=== PATIENT | female | born 1970 | race Caucasian/White ===

== ENCOUNTER → 2017-10-09 12:33 | Outpatient (CLI) | payer OTHER, SELFPAY ==
--- NOTE | 2017-10-09 | DI.MG.S_ITS ---
BILATERAL DIGITAL SCREENING MAMMOGRAM 3D/2D WITH CAD: 10/09/2017 CLINICAL: Routine screening. Family history of breast cancer. Comparison is made to exams dated: 09/08/2016 mammogram, 09/07/2015 mammogram, and 08/29/2013 mammogram - [facility]. There are scattered fibroglandular elements in both breasts. Current study was also evaluated with a Computer Aided Detection (CAD) system. No significant masses, calcifications, or other findings are seen in either breast. There has been no significant interval change. IMPRESSION: NEGATIVE There is no mammographic evidence of malignancy. A 1 year screening mammogram is recommended. This exam was interpreted at Station ID: [id number]. NOTE: For mammograms, a report in lay terms will be sent to the patient. Approximately 15% of breast malignancies will not be visualized mammographically. In the management of a palpable breast mass, a negative mammogram must not discourage biopsy of a clinically suspicious lesion. Electronically Signed By: Marlee dobbins/nael:10/09/2017 14:32:00 letter sent: Normal Exam ACR BI-RADS Category 1: Negative 3341F
== END ==
PROVIDERS: Visit Provider Emergency Medicine Emergency Medical Services
DX: Z12.31 Encounter for screening mammogram for malignant neoplasm of breast (principal); Z80.3 Family history of malignant neoplasm of breast
CPT/HCPCS: 77063; 77067

== ENCOUNTER → 2017-11-05 13:50 | Outpatient (CLI) | payer OTHER, SELFPAY ==
--- NOTE | 2017-11-05 | DI.MG.S_ITS ---
UNILATERAL RIGHT DIGITAL DIAGNOSTIC MAMMOGRAM: 11/05/2017 CLINICAL: Right breast pain. Comparison is made to exams dated: 10/09/2017 mammogram, 09/08/2016 mammogram, and 09/07/2015 mammogram - [facility]. There are scattered fibroglandular elements in the right breast. No significant masses, calcifications, or other findings are seen in the breast. IMPRESSION: INCOMPLETE: NEEDS ADDITIONAL IMAGING EVALUATION There is no abnormality seen in the right breast to correspond with the pain in the upper inner quadrant, however, ultrasound is recommended. This exam was interpreted at Station ID: [id number]. NOTE: For mammograms, a report in lay terms will be sent to the patient. Approximately 15% of breast malignancies will not be visualized mammographically. In the management of a palpable breast mass, a negative mammogram must not discourage biopsy of a clinically suspicious lesion. Electronically Signed By: Ricci escalona/nael:11/05/2017 14:33:18 letter sent: Need Ultrasound ACR BI-RADS Category 0: Incomplete 3340F
--- NOTE | 2017-11-05 | DI.US.S_ITS ---
ULTRASOUND OF RIGHT BREAST: 11/05/2017 CLINICAL: Focal right breast pain. Comparison is made to exams dated: 11/05/2017 mammogram, 10/09/2017 mammogram, 09/08/2016 mammogram, 09/07/2015 mammogram, 03/18/2013 mammogram, and 08/29/2013 mammogram - [facility]. Real-time ultrasound of the right breast was performed on the area of interest. IMPRESSION: NEGATIVE There is no sonographic evidence of malignancy. There is no abnormality seen in the right breast to correspond with the pain in the upper inner quadrant, however, clinical followup is recommended. Return to annual mammogram screening schedule is recommended. This exam was interpreted at Station ID: [id number]. Electronically Signed By: Ricci escalona/nael:11/05/2017 16:21:05 letter sent: Clinical Evaluation Ultrasound BI-RADS: 1 Negative
== END ==
PROVIDERS: Visit Provider Emergency Medicine Emergency Medical Services
DX: N64.4 Mastodynia (principal)
CPT/HCPCS: 76642; 77065; G0279

== ENCOUNTER 2017-12-12 18:03 | Observation (INO) | payer OTHER, SELFPAY ==
[2017-12-12 18:26] VITALS: BP 179/101; PULSE 119; RESP 20; TEMP 36.9; O2SAT 100; BMI 34.3
--- NOTE | 2017-12-12 18:49 | ED_ITS ---
HPI - Abdominal Pain General Chief Complaint: Abdominal Pain Stated Complaint: RT SIDE PAIN Time Seen by Provider: 12/12/17 18:15 Source: patient Mode of arrival: ambulatory Limitations: no limitations History of Present Illness HPI narrative: Patient is a 47-year-old female who presents with all right- sided pain. She says started at 3:00 p.m. this afternoon is it is quite intense sharp and stabbing. Nonradiating. Not really in her right lower or upper quadrant more in the middle. No hematuria. She feels nauseated no vomiting no fevers no diarrhea. She does something like this in the past and was diagnosed with a diverticulitis. MD complaint: abdominal pain Related Data Home Medications Medication Instructions Recorded Confirmed atenolol 50 mg PO BID 12/12/17 12/12/17 lisinopril 50 mg PO DAILY 12/12/17 12/12/17 metformin 500 mg PO BID 12/12/17 12/12/17 Allergies Allergy/AdvReac Type Severity Reaction Status Date / Time adhesive AdvReac Intermediate Hives Verified 12/12/17 22:28 Review of Systems Review of Systems All systems reviewed & are unremarkable except as noted in HPI and below Constitutional Denies chills, Denies fever(s), Denies lethargy and Denies weakness Cardiovascular Denies chest pain, Denies irregular heart rhythm, Denies lightheadedness, Denies palpitations, Denies dyspnea, Denies dyspnea on exertion and Denies orthopnea Respiratory Denies cough, Denies dyspnea, Denies dyspnea on exertion and Denies wheezing Gastrointestinal Gastrointestinal: Reports as per HPI Genitourinary Denies hematuria, Denies flank pain, Denies urinary incontinence and Denies urinary urgency Musculoskeletal Denies back pain, Denies muscle weakness, Denies numbness and Denies tingling Integumentary/Breasts Denies pruritus, Denies erythema, Denies rash and Denies wounds Neurologic Denies numbness, Denies tingling and Denies weakness Endocrine Denies palpitations Allergic/Immunologic Denies wheezing [facility] Medical History Hypertension (Acute) Ovarian cyst (Acute) Sinus tachycardia (Acute) Surgical History History of cholecystectomy (Acute) Social History household members: spouse Smoking Status: Former smoker alcohol intake: never substance use type: does not use Exam Initial Vital Signs Initial Vital Signs: Vital Signs Temperature 98.4 F 12/12/17 18:26 Pulse Rate 119 H 12/12/17 18:26 Respiratory Rate 20 12/12/17 18:26 Blood Pressure 179/101 H 12/12/17 18:26 Pulse Oximetry 100 12/12/17 18:26 GENERAL: Overweight young female in mild distress HEENT: Head atraumatic,EOMI, pupils reactive, neck is supple CARDIOVASCULAR: Regular rate and rhythm without murmurs, rubs or gallops. RESPIRATORY: Breath sounds equal bilaterally, no wheezes rales or rhonchi. ABDOMEN: Soft, right-sided pain, negative Mafyield sign, no right lower quadrant pain : No CVA tenderness EXTREMITIES: Normal range of motion, no clubbing or edema. Neurovascularly intact NEUROLOGICAL: Alert and oriented x4.Normal gait and speech. Cranial nerves II through XII grossly intact. SKIN: Warm, dry, no laceration, no petechiae, no rashes or lesions. Course Orders Ordered: ED Orders 12/12/17 18:57 CT abdomen pelvis w con Stat 12/12/17 19:25 Complete Blood Count AUTO DIFF Stat Comprehensive Metabolic Panel Stat Lipase Stat 12/12/17 22:11 Consult to General Surgery Routine Sodium Chloride (Normal Saline 0.9%) 1,000 mls @ 125 mls/hr IV CONT JEY Last Admin: 12/12/17 22:47 Dose: 125 mls/hr Piperacillin/Tazobactam/Dextrose (Zosyn) 3.375 gm in 50 mls @ 100 mls/hr IV Q6H JEY Morphine Sulfate (Morphine) 2 mg IV Q4HR PRN PRN Reason: Pain, Mild (1-3) Last Admin: 12/12/17 22:55 Dose: 2 mg Ondansetron HCl (Zofran) 4 mg IV Q6HR PRN PRN Reason: Nausea And Vomiting Discontinued Medications Atenolol (Tenormin) 50 mg PO NOW ONE Stop: 12/12/17 21:05 Last Admin: 12/12/17 21:20 Dose: 50 mg Sodium Chloride (Normal Saline 0.9%) 1,000 mls @ 1,000 mls/hr IV CONT JEY Last Infusion: 12/12/17 21:48 Dose: 0 mls/hr Admin: 12/12/17 19:47 Dose: 1,000 mls/hr Piperacillin/Tazobactam/Dextrose (Zosyn) 3.375 gm in 50 mls @ 100 mls/hr IV NOW ONE Stop: 12/12/17 20:52 Last Infusion: 12/12/17 21:48 Dose: 0 mls/hr Admin: 12/12/17 20:50 Dose: 100 mls/hr Ketorolac Tromethamine (Toradol) 30 mg IV NOW ONE Stop: 12/12/17 18:57 Last Admin: 12/12/17 19:47 Dose: 30 mg Morphine Sulfate (Morphine) 2 mg IV NOW ONE Stop: 12/12/17 20:44 Last Admin: 12/12/17 20:49 Dose: 2 mg Ondansetron HCl (Zofran) 4 mg IV NOW ONE Stop: 12/12/17 18:57 Last Admin: 12/12/17 19:47 Dose: 4 mg Consultations Consultation #1: Dr. Elias surgery has been updated on patient's symptoms and test results. At this time admit with IV antibiotics. Time: 20:15 Vital Signs - 8 hr 12/12/17 18:26 12/12/17 19:10 12/12/17 21:08 Temperature 98.4 F Pulse Rate 119 H 112 H 114 H Respiratory Rate 20 18 16 Blood Pressure 179/101 H Blood Pressure [Left Arm] 164/99 H 149/82 H Pulse Oximetry 100 100 97 12/12/17 22:16 Temperature 98.3 F Pulse Rate 93 H Respiratory Rate 18 Blood Pressure 148/86 H Blood Pressure [Left Arm] Pulse Oximetry 99 MDM - Abdominal Pain Lab Data Result diagrams: 12/12/17 19:25 12/12/17 19:25 Lab Results 12/12/17 12/12/17 Range/Units 19:25 19:25 WBC 18.2 H (4.5-11.0) X10^3/uL RBC 4.91 (4.0-5.2) X10^6/uL Hgb 13.6 (12.0-16.0) g/dL Hct 40.8 (36-46) % MCV 83.0 (80-100) fL MCH 27.7 (26-34) PG MCHC 33.4 (30-36) % RDW 13.9 (11.6-14.8) % Plt Count 300 (150-400) X10^3/uL Neut % (Auto) 78.3 H (50-75) % Lymph % (Auto) 13.4 L (25-40) % [place] % (Auto) 5.9 (3-14) % Eos % (Auto) 2.1 (2-4) % Baso % (Auto) 0.3 (0-2) % Neut # (Auto) 91529 H (9823-3652) /uL Sodium 143 (137-145) mmol/L Potassium 4.0 (3.4-5.1) mmol/L Chloride 103 (98-107) mmol/L Carbon Dioxide 27 (22-32) mmol/L BUN 14 (7-17) mg/dL Creatinine 0.80 (0.52-1.04) mg/dL Estimated GFR > 60.0 (>60) mL/min BUN/Creatinine Ratio 17.5 (6-22) Glucose 96 (70-100) mg/dL Calcium 9.6 (8.4-10.2) mg/dL Total Bilirubin 0.4 (0.2-1.3) mg/dL AST 39 H (14-36) IU/L ALT 51 (9-52) IU/L Alkaline Phosphatase 97 (38-126) U/L Total Protein 8.2 (6.3-8.2) g/dL Albumin 4.6 (3.5-5.0) g/dL Globulin 3.6 (1.7-4.1) g/dL Albumin/Globulin Ratio 1.3 (1.0-2.8) Lipase 136 (23-300) U/L Point of care testing: Point of Care Testing Test Results Negative Urine Dip Bedside Urine Glucose Negative Bedside Urine Bilirubin - Negative Bedside Urine Ketone - Negative Urine Specific [place] 1.030 Bedside Urine Occult Blood - Negative Bedside Urine pH 6.0 Bedside Urine Protein - Negative Bedside Urine Urobilinogen - Negative Bedside Urine Nitrite - Negative Bedside Urine Leukocytes - Negative Esterase Imaging Data CT scan - abdomen: Radiologist's impression: PROCEDURE: CT ABDOMEN PELVIS W CON INDICATIONS: Right sided pain TECHNIQUE: After the administration of intravenous contrast, 5 mm thick sections acquired from the diaphragm to the symphysis. 5 mm coronal and sagittal reformats were acquired. For radiation dose reduction, the following was used: automated exposure control, adjustment of mA and/or kV according to patient size. COMPARISON: None. FINDINGS: Image quality: Excellent. ABDOMEN: Lung bases: Lung bases are clear. Heart size is normal. Solid organs: Liver is normal in size and enhancement. Gallbladder is surgically absent. Biliary system is non dilated. Pancreas enhances normally. Spleen is normal in size and enhancement. No adrenal nodules. Kidneys demonstrate normal size and enhancement, without hydronephrosis. Peritoneum and bowel: Bowel loops demonstrate normal wall thickness and caliber. The appendix is thin walled and normal caliber. However, there is trace fat stranding around the appendix (series 2, image 40). No free fluid or air. Nodes and vessels: No retroperitoneal or mesenteric adenopathy by size criteria. Aorta and inferior vena cava are normal in size. Miscellaneous: There is diastasis of the rectus abdominis musculature. PELVIS: Genitourinary: Bladder wall thickness is normal. Miscellaneous: No inguinal hernias or adenopathy. Bones: No suspicious bony lesions. No vertebral body compression fractures. IMPRESSION: 1. Normal caliber appendix; however there is trace periappendiceal fat stranding. The significance of this finding is unclear. Early acute appendicitis could be considered in the differential if clinically appropriate. 2. No other acute intra-abdominal findings. Dictated by: Marlee Fenton M.D. on 12/12/2017 at 19:49 Approved by: Marlee Fenton M.D. on 12/12/2017 at 19:51 Discharge Plan Departure Patient Disposition: Admitted as Observation Clinical Impression: Appendicitis Discharge Date/Time: 12/12/17 22:10 Interventions: ED Discharge Assessment Last Done: 12/12/17 22:09 Admit Date/Time: 12/12/17 20:36 Admit Provider: Gregory Brush
--- NOTE | 2017-12-12 18:57 | DI.CT.S_ITS ---
PROCEDURE: CT ABDOMEN PELVIS W CON INDICATIONS: Right sided pain TECHNIQUE: After the administration of intravenous contrast, 5 mm thick sections acquired from the diaphragm to the symphysis. 5 mm coronal and sagittal reformats were acquired. For radiation dose reduction, the following was used: automated exposure control, adjustment of mA and/or kV according to patient size. COMPARISON: None. FINDINGS: Image quality: Excellent. ABDOMEN: Lung bases: Lung bases are clear. Heart size is normal. Solid organs: Liver is normal in size and enhancement. Gallbladder is surgically absent. Biliary system is non dilated. Pancreas enhances normally. Spleen is normal in size and enhancement. No adrenal nodules. Kidneys demonstrate normal size and enhancement, without hydronephrosis. Peritoneum and bowel: Bowel loops demonstrate normal wall thickness and caliber. The appendix is thin walled and normal caliber. However, there is trace fat stranding around the appendix (series 2, image 40). No free fluid or air. Nodes and vessels: No retroperitoneal or mesenteric adenopathy by size criteria. Aorta and inferior vena cava are normal in size. Miscellaneous: There is diastasis of the rectus abdominis musculature. PELVIS: Genitourinary: Bladder wall thickness is normal. Miscellaneous: No inguinal hernias or adenopathy. Bones: No suspicious bony lesions. No vertebral body compression fractures. IMPRESSION: 1. Normal caliber appendix; however there is trace periappendiceal fat stranding. The significance of this finding is unclear. Early acute appendicitis could be considered in the differential if clinically appropriate. 2. No other acute intra-abdominal findings. Dictated by: Marlee Fenton M.D. on 12/12/2017 at 19:49 Approved by: Marlee Fenton M.D. on 12/12/2017 at 19:51
[2017-12-12 19:10] VITALS: BP 164/99; PULSE 112; RESP 18; O2SAT 100
[2017-12-12 19:37] LABS: Add Manual Diff / Slide Review NO; Basophils Percent Auto 0.3 % (0-2); Eosinophils Percent Auto 2.1 % (2-4); Hematocrit 40.8 % (36-46); Hemoglobin 13.6 g/dL (12.0-16.0); Lymphocytes Percent Auto 13.4 % (25-40); Mean Corpuscular HGB Conc 33.4 % (30-36); Mean Corpuscular Hemoglobin 27.7 PG (26-34); Monocytes Percent Auto 5.9 % (3-14); Neutrophils Absolute Auto 14300 /uL (3000-5900); Neutrophils Percent Auto 78.3 % (50-75); Platelet Count 300 X10^3/uL (150-400); Red Blood Cell Count 4.91 X10^6/uL (4.0-5.2); Red Cell Distribution Width 13.9 % (11.6-14.8); White Blood Cell Count 18.2 X10^3/uL (4.5-11.0)
[2017-12-12] MEDS: KETOROLAC 60 MG/2 ML VIAL 30 MG IV (19:47)
[2017-12-12] MEDS: ONDANSETRON 4 MG/2 ML INJ IV (19:47)
[2017-12-12] MEDS: SODIUM CHLORIDE 0.9% 1,000 ML 1000 ML IV (19:47)
[2017-12-12 19:48] LABS: Alanine Aminotransferase 51 IU/L (9-52); Albumin 4.6 g/dL (3.5-5.0); Albumin Globulin Ratio 1.3 (1.0-2.8); Alkaline Phosphatase 97 U/L (38-126); Aspartate Aminotransferase 39 IU/L (14-36); BUN Creatinine Ratio 17.5 (6-22); Bilirubin Total 0.4 mg/dL (0.2-1.3); Blood Urea Nitrogen 14 mg/dL (7-17); Calcium 9.6 mg/dL (8.4-10.2); Carbon Dioxide 27 mmol/L (22-32); Chloride 103 mmol/L (98-107); Estimated Glomerular Filt Rate > 60.0 mL/min (>60); Globulin 3.6 g/dL (1.7-4.1); Glucose 96 mg/dL (70-100); HEMOLYSIS 26 (0-50); Lipase 136 U/L (23-300); Sodium 143 mmol/L (137-145); Total Protein 8.2 g/dL (6.3-8.2)
[2017-12-12] MEDS: MORPHINE 2 MG/ML INJ IV ×2 (20:49→22:55)
[2017-12-12] MEDS: PIPERACILLIN-TAZO 3.375 GM/50 ML FROZ.PIGGY IV (20:50)
[2017-12-12 21:08] VITALS: BP 149/82; BP 159/94; PULSE 114; PULSE 117; RESP 16; RESP 18; O2SAT 97; O2SAT 99
[2017-12-12] MEDS: ATENOLOL 50 MG TABLET PO (21:20)
[2017-12-12 22:16] VITALS: BP 148/86; PULSE 93; RESP 18; TEMP 36.8; O2SAT 99
[2017-12-12 22:31] VITALS: BMI 34.3
[2017-12-12] MEDS: SODIUM CHLORIDE 0.9% 1,000 ML 125 ML IV (22:47)
[2017-12-12 23:30] VITALS: BP 128/72; PULSE 75; RESP 20; TEMP 36.4; O2SAT 96
[2017-12-13] VITALS (17 sets, daily range): BP systolic 85–158; BP diastolic 46–84; PULSE 46–80; RESP 12–22; TEMP 36.3–37.2; O2SAT 97–100; BMI 34.3
--- NOTE | 2017-12-13 | PATH_ITS ---
[facility] Accession Number: [id number] . 01 Material submitted: . APPENDIX . 02 Diagnosis: Appendix, Appendectomy: Acute appendicitis with serositis. No evidence of dysplasia or malignancy. [facility]/12/16/2017 . 02 Electronically signed: . Faye Crawford MD, Pathologist NPI- [id number] . 01 Gross description: . Received in formalin, labeled appendix, is an intact appendix (length-8.5 cm, diameter-0.7 cm) with washburn smooth and shiny serosa and attached mesoappendix (up to 2.1 cm in depth). The resection margin is received opened. The lumen contains clear colorless fluid. The wall is up to 0.2 cm thick. No nodules, masses or lesions are identified. The resection margin is inked black. Section code: (A1) resection margin en face and three additional serial sections; (A2) one-half of the bivalved tip. ([id number]) /[facility] . 02 Pathologist provided ICD-10: K35.80 . 02 CPT . 974323 Performed at: 01 [facility] [address], [place], [place] [id number] MD Ricci Colon MD Phone: [phone] Performed at: 02 [facility] [address] [place], [place] [id number] MD Bobby Crews MD Phone: [phone]
--- NOTE | 2017-12-13 00:40 | PC.NURSE ---
Addendum entered by Luna Velasquez R.N. 12/13/17 06:55: Now states pain is better controlled at 4/10. Nausea is resolved. Original Note: Addendum entered by Luna Velasquez R.N. 12/13/17 05:04: States pain is now 6/10 so medicated with Morphine. Denies nausea. Original Note: Patient is alert and oriented. Breath sounds CTA with RA sat of 96%. HRR. Denies nausea. BT present and abdomen is soft. Admits to 4/10 pain/tenderness in right LQ but states it is currently tolerable. Discussed frequency of pain medication but also informed if pain not controlled with current orders MD can be contacted. Independent with mobility. NPO for surgery in a.m.; patient verbalizes understanding. Voiding without difficulty. Fall risk score is moderate but is oriented and steady on feet so bed alarm is not being used.
[2017-12-13] MEDS: PIPERACILLIN-TAZO 3.375 GM/50 ML FROZ.PIGGY IV ×2 (01:55→07:52)
[2017-12-13] MEDS: MORPHINE 2 MG/ML INJ IV ×2 (05:00→06:00)
[2017-12-13] MEDS: ONDANSETRON 4 MG/2 ML INJ IV (05:47)
[2017-12-13] MEDS: SODIUM CHLORIDE 0.9% 1,000 ML 125 ML IV (06:08)
[2017-12-13] MEDS: LACTATED RINGERS 1,000 ML 100 ML IV ×2 (08:40→16:42)
[2017-12-13] MEDS: LACTATED RINGERS 1,000 ML 42 ML IV (08:45)
--- NOTE | 2017-12-13 09:29 | HP_ITS ---
DATE OF SERVICE: 12/13/2017 HISTORY OF PRESENT ILLNESS: This is a 47-year-old white female patient who came to the emergency room last evening with lower abdominal pain, which actually began the same day, yesterday afternoon. She was evaluated in the emergency room with a CT scan and a CBC. White count of 18,000. CT scan showing uncomplicated early acute appendicitis. She was admitted, given IV Zosyn, and is prepared now for appendectomy. I have explained to the patient that we will plan an open appendectomy. She is not morbidly obese, so there is really no surgical indication for laparoscopy. PAST SURGICAL HISTORY: She has had left shoulder repair several times. She has also had a laparoscopic cholecystectomy. ALLERGIES: NO KNOWN MEDICAL ALLERGIES EXCEPT TO ADHESIVE TAPE. MEDICATIONS: She takes lisinopril and atenolol for hypertension and metformin for early diabetes. No other medications. REVIEW OF SYSTEMS: Negative for unusual chest pain or shortness of breath. GI: As in HPI. : Negative. TEST PREPARATION TUTOR: No abnormal vaginal bleeding. NEUROLOGIC: Negative for seizures or strokes. CARDIOVASCULAR: She does have hypertension and sinus tachycardia for which she takes beta bob and lisinopril. PHYSICAL EXAMINATION VITAL SIGNS: She is afebrile, temperature being 97.6. HEENT: Ears, nose, and throat are normal. NECK: No adenopathy. LUNGS: Clear with no rales or wheezes. HEART: Regular rhythm with no murmur. Heart rate is only 80 this morning. ABDOMEN: Mild tenderness right over McBurney point just anterior and a bit superior to the anterior iliac spine in the right lower quadrant. The remaining abdominal exam is soft with no signs of generalized peritonitis. IMPRESSION: Early uncomplicated acute appendicitis. She also has hypertension and early onset diabetes. PLAN: Appendectomy. Momin Liyah - /dionicio/enedelia doc#: [id number]/job#: [id number] dd: 12/13/2017 08:12:00 dt: 12/13/2017 09:19:00 DICTATING MD/COPIES TO: Gregory Brush MD COPIES MNE: MAO
--- NOTE | 2017-12-13 09:36 | SUR.OPER ---
Supine on padded OR bed, head on pillow, arms secured on padded arm boards at <90 degrees abduction, legs uncrossed, safety belt at thigh, tape over blanket over lower legs.
[2017-12-13] MEDS: BUPIVACAINE 0.5% W/ EPI (PF) VIAL 30 ML INJ (09:45)
[2017-12-13] MEDS: NEOMYCIN/POLYMYXIN/BACITRA UD OINT 1 EACH TOP (09:47)
[2017-12-13] MEDS: fentaNYL 100 MCG/2 ML INJ 50 MCG IV ×2 (10:40→10:45)
[2017-12-13] MEDS: FAMOTIDINE 20 MG/50 ML PIGGYBACK 200 MG IV (11:43)
--- NOTE | 2017-12-13 13:43 | OP_ITS ---
DATE OF SERVICE: 12/13/2017, 1010:30 a.m., Thursday. PREOP DIAGNOSIS: Acute uncomplicated appendicitis. POSTOP DIAGNOSIS: Acute uncomplicated appendicitis. PROCEDURE: Appendectomy. SURGEON: Gregory Brush MD DESCRIPTION OF PROCEDURE: Patient was given a general endotracheal anesthetic, prepped and draped in a sterile fashion with exposure of the right lower quadrant of the abdomen. She was properly identified during surgical pause. A standard Keenan-Domo incision was made over McBurney point. The oblique muscles split in the gridiron fashion exposing the peritoneum, which was elevated and entered so as to avoid injury to the underlying structures. The cecum was rotated into the wound. The patient's appendix with an elevated, and the tip of the appendix was acutely inflamed and edematous, coated with some fibrin, erythematous. There was no evidence of abscess. There was no perforation of the appendix. The mesoappendix was divided between clamps. The vessels ligated with 2-0 Vicryl ties. There was excellent hemostasis. The base of the appendix was closed over a TA30 staple line, and then the appendix was cross clamped and divided over the staple line, removing the appendix without any spillage. There was, again, no free pus. The staple line was inspected and was intact. The cecum returned to the peritoneal position in the right lower quadrant, the pelvis irrigated with copious Ancef containing saline, aspirated dry. There was no bleeding. No purulence. The peritoneum closed with a running 0 Vicryl. The fascia closed with interrupted #1 Maxon, figure-of-8 sutures. The subcu irrigated with Ancef saline and closed with 2-0 Vicryl. The skin loosely stapled. Sterile dressing applied. Procedure was very well-tolerated. Liyah Momin - /dionicio/ doc#: [id number]/job#: [id number] dd: 12/13/2017 10:28:00 dt: 12/13/2017 13:33:00 DICTATING MD/COPIES TO: Gregory Brush MD COPIES MNE: MAO
[2017-12-13] MEDS: OXYCODONE/ACETAMINOPHEN 5/325 TABLET 1 TAB PO ×2 (16:41→21:27)
[2017-12-13] MEDS: METFORMIN HCL 500 MG TABLET PO (16:43)
[2017-12-13] MEDS: IBUPROFEN 600 MG TABLET PO (20:37)
[2017-12-13] MEDS: ATENOLOL 50 MG TABLET PO (20:37)
[2017-12-14] MEDS: FAMOTIDINE 20 MG/50 ML PIGGYBACK 200 MG IV (00:47)
--- NOTE | 2017-12-14 01:01 | PC.NURSE ---
Addendum entered by Ingrid Melton R.N. 12/14/17 06:43: pt complaining of 6/10 pain after ambulating to BR. Administrated 1 tab percocet and let her know when her next dose is available and that she will need to ask for her pain meds. Original Note: NOC shift Patient resting calmly, alert and awakes to voice. Patient receptive to care. IND in room. Denying nausea, reporting pain of 2/10 and able to tolerate. Dressing is intact. but is 3/4 covered with drainage.
[2017-12-14] MEDS: LACTATED RINGERS 1,000 ML 100 ML IV (02:19)
[2017-12-14 04:18] VITALS: BP 116/68; PULSE 63; RESP 20; TEMP 36.3; O2SAT 98
[2017-12-14] MEDS: OXYCODONE/ACETAMINOPHEN 5/325 TABLET 1 TAB PO ×3 (06:39→14:32)
[2017-12-14 08:00] VITALS: BP 153/92; PULSE 76; RESP 18; TEMP 36.7; O2SAT 95
[2017-12-14] MEDS: ATENOLOL 50 MG TABLET PO (08:16)
[2017-12-14] MEDS: METFORMIN HCL 500 MG TABLET PO (08:16)
[2017-12-14] MEDS: IBUPROFEN 600 MG TABLET PO (08:16)
[2017-12-14] MEDS: LISINOPRIL 10 MG TABLET PO (08:23)
--- NOTE | 2017-12-14 11:29 | PC.NURSE ---
Addendum entered by Alexia Padilla R.N. 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 Original Note: Addendum entered by Alexia Padilla R.N. 12/14/17 14:14: integ - earlier loratadine resolved itching sensation. in and pt to dc home. Original Note: Addendum entered by Alexia Padilla R.N. 12/14/17 12:39: INTEG - pt reports some itching, along incisions, states hx allergy to adhesive, removed op site, telfa dsg w/old serosang, no rash or hives noted skin, stapled incicions c,d,i, replaced telfa with hypofix tape over as pt state she sampson this at home; also, unable to take benadryl due reaction and takes claritan at home, paged and reached in OR, new order rec'd and pt given 10mg po loratadine. Original Note: AM NOTE - alert, did have an uncomfortable night, once medicated, states abd discomfort 4 on scale 0/10, denies nausea, abd soft with bt present, passing flatus, standby assist up br to void and then to chair for breakfast, rlq dsg with some shadow drainage, op site intact w/o leakage, discussed pain medications, dosages and timing, given ibuprofen with breakfast and later am given percocet po x 1 tab with crackers.
[2017-12-14] MEDS: FAMOTIDINE 20 MG/50 ML PIGGYBACK 50 MG IV (11:53)
[2017-12-14] MEDS: LORATADINE 10 MG TABLET PO (12:44)
== END 2017-12-14 15:00 | disposition home or self-care (01) ==
LOC: ED 20:25 → AC 20:41
PROVIDERS: Admitting Provider Surgery; Emergency Provider Emergency Medicine; Visit Provider Surgery
PROC: (CPT 44950; principal; 2017-12-13 08:40)
DX: K37 Unspecified appendicitis (principal); I10 Essential (primary) hypertension; E11.9 Type 2 diabetes mellitus without complications; Z79.84 Long term (current) use of oral hypoglycemic drugs
CPT/HCPCS: 44970; 36591; 36592; 74177; 80053; 81003; 81025; 83690; 85025; 93005; 94760; 94762; 96374; 96375; 99283; 99285; G0378; J1885; J2270; J2405; J2543; J2704; J2765; J3010; Q9967

== ENCOUNTER → 2019-02-22 11:30 | Outpatient (CLI) | payer OTHER, SELFPAY ==
[2017-12-21 12:09] VITALS: BMI 34.3
--- NOTE | 2019-02-22 | DI.MG.S_ITS ---
BILATERAL DIGITAL SCREENING MAMMOGRAM 3D/2D WITH CAD: 02/22/2019 CLINICAL: Routine screening. Family history of breast cancer. Comparison is made to exams dated: 11/05/2017 mammogram, 10/09/2017 mammogram, 09/08/2016 mammogram, and 09/07/2015 mammogram - [facility]. There are scattered fibroglandular elements in both breasts. Current study was also evaluated with a Computer Aided Detection (CAD) system. No significant masses, calcifications, or other findings are seen in either breast. There has been no significant interval change. IMPRESSION: NEGATIVE There is no mammographic evidence of malignancy. A 1 year screening mammogram is recommended. This exam was interpreted at Station ID: [id number]. NOTE: For mammograms, a report in lay terms will be sent to the patient. Approximately 15% of breast malignancies will not be visualized mammographically. In the management of a palpable breast mass, a negative mammogram must not discourage biopsy of a clinically suspicious lesion. Electronically Signed By: Marlee dobbins/nael:02/22/2019 12:33:00 letter sent: Normal Exam ACR BI-RADS Category 1: Negative [id number]
== END ==
PROVIDERS: Visit Provider Emergency Medicine Emergency Medical Services
DX: Z12.31 Encounter for screening mammogram for malignant neoplasm of breast (principal); Z80.3 Family history of malignant neoplasm of breast
CPT/HCPCS: 77063; 77067

== ENCOUNTER 2019-11-27 20:28 | Emergency (ER) | payer OTHER, SELFPAY ==
[2017-12-21 12:09] VITALS: BMI 34.3
[2019-11-27 20:37] VITALS: BP 181/109; PULSE 88; RESP 20; TEMP 37; O2SAT 98
[2019-11-27 20:39] VITALS: BP 181/109; PULSE 92; RESP 20; TEMP 37; O2SAT 97; BMI 35.5
--- NOTE | 2019-11-27 20:54 | ED_ITS ---
HPI - Fall General Chief Complaint: Fall Stated Complaint: fall today, left knee and rib pain Time Seen by Provider: 11/27/19 20:29 Source: patient Mode of arrival: Wheelchair Limitations: no limitations History of Present Illness HPI Narrative: 49-year-old female here for evaluation of left-sided chest wall discomfort, abrasions to her left elbow and left knee. Patient states that she tripped and fell on the gravel in her driveway. She landed on her left side. There was no loss of conscious. She has no neck pain. Did not hit her head. Was concerned about the left side of her chest. She states that her left knee is hurting however she can bend it and ambulate like normal. Same with her left elbow. Related Data Home Medications Medication Instructions Recorded Confirmed atenolol 50 mg PO BID 12/12/17 12/21/17 lisinopril 50 mg PO DAILY 12/12/17 12/21/17 metformin 500 mg PO BID 12/12/17 12/21/17 Previous Rx's Medication Instructions Recorded lidocaine 1 patch TOP Q24H PRN #1 each 11/27/19 Allergies Allergy/AdvReac Type Severity Reaction Status Date / Time adhesive AdvReac Mild Hives Verified 11/27/19 20:39 Review of Systems Constitutional Constitutional: Denies fever(s) Cardiovascular Cardiovascular: Reports chest pain (Chest wall pain) and Denies dyspnea Respiratory Respiratory: Reports pain on inspiration and Denies dyspnea Gastrointestinal Gastrointestinal: Denies abdominal pain and Denies change in bowel habits Genitourinary Genitourinary: Denies dysuria Genitourinary: Denies dysuria Musculoskeletal Comments: Left knee left elbow pain Integumentary/Breasts Comments: Abrasions to the left knee left elbow Neurologic Neurologic: Denies behavioral changes Psychiatric Psychiatric: Denies behavioral changes Hematologic/Lymphatic Hematologic/Lymphatic: Denies easy bleeding and Denies easy bruising Allergic/Immunologic Allergic/Immunologic: Denies urticaria Patient History Medical History Hypertension (Acute) Ovarian cyst (Acute) Pre-diabetes (Acute) Sinus tachycardia (Acute) Surgical History History of cholecystectomy (Acute) Social History household members: spouse Smoking Status: Former smoker alcohol intake: never substance use type: does not use Smoking Status: Former smoker alcohol intake frequency: holidays/special occasions only Alcohol type: beer and wine Substance Use Type: does not use Exam Initial Vital Signs Initial Vital Signs: Vital Signs Temperature 98.6 F 11/27/19 20:37 Pulse Rate 88 11/27/19 20:37 Respiratory Rate 20 11/27/19 20:37 Blood Pressure 181/109 H 11/27/19 20:37 Pulse Oximetry 98 11/27/19 20:37 Const General: cooperative, comfortable and well developed Limitations: mental status not altered HENMT Head: normal to inspection and normocephalic Chest Chest: No crepitus and tenderness (Left anterior chest) Resp Effort & Inspection: normal respiratory effort Auscultation: clear to auscultation bilaterally Cardio Rate: regular rate Rhythm: regular rhythm Skin Other: Superficial abrasions anterior left knee and lateral left elbow Extrem General: normal to inspection and capillary refill normal Other: Full range of motion left shoulder left elbow and left knee Psych Appearance: grossly normal and well kempt Course Orders Ordered: ED Orders 11/27/19 20:54 XR ribs LT min 3V w CXR1V Stat Discontinued Medications Hydrocodone Bitart/Acetaminophen (Vicodin 5/325 Prepack) 1 bottle MISC SEEINSTR ONE Stop: 11/27/19 21:53 Last Admin: 11/27/19 21:59 Dose: 1 bottle Documented by: AGA Vital Signs Vital signs: Vital Signs - 8 hr 11/27/19 20:37 11/27/19 20:39 11/27/19 22:01 Temperature 98.6 F 98.6 F Pulse Rate 88 92 H 84 Respiratory Rate 20 20 18 Blood Pressure 181/109 H 181/109 H 177/84 H Pulse Oximetry 98 97 98 11/27/19 22:04 Temperature 97.6 F Pulse Rate Respiratory Rate Blood Pressure Pulse Oximetry MDM - Fall Imaging Data X-ray ribs: Radiologist's Impression: [address] [address] XRay Report Signed Patient: Liyah Momin#: [id number] : 1970Acct:[id number] Age/Sex: 49 / FDate of Service: 11/27/19 Loc: ED Accession Number: [id number] Procedure: XR ribs LT min 3V w CXR1V Ordering Provider: Manuel Caceres D.O. PROCEDURE: XR RIBS LT MIN 3V W CXR1V INDICATIONS: Mid L side anterior/lateral ribs TECHNIQUE: 3 views of the left ribs were acquired, along with a single view chest. COMPARISON: None. FINDINGS: Surgical changes and devices: None. Bones and chest wall: No fractures or dislocations. No suspicious bony lesions. Overlying soft tissues appear unremarkable. Lungs and pleura: No pleural effusions or pneumothorax. Lungs appear clear. Mediastinum: Mediastinal contours appear normal. Heart size is normal. IMPRESSION: No visualized acute fracture or dislocation. However, if clinical concern and/or pain persist, short interval imaging followup in 7-10 days is recommended, as occult injury cannot be definitively excluded. Dictated by: Siomara St M.D. on 11/27/2019 at 21:30 Approved by: Siomara St M.D. on 11/27/2019 at 21:32 MDM Narrative Medical decision making narrative: Neurovascular intact, no fractures on the x- rays. No shortness of breath. The abrasions on the left knee and left elbow knee no intervention in the ER. Suspect a rib contusion. I did discuss this with the patient. We did discuss return precautions and follow-up instructions. She expressed understanding and agreement. Discharge Plan Departure Patient Disposition: Home Clinical Impression: Acute chest wall pain Discharge Date/Time: 11/27/19 22:04 Instructions: DI for Rib Fracture, DI for Rib Contusion Activity Restrictions/Additional Instructions: You have no restrictions on your activities. You can take Tylenol/ibuprofen for any discomfort. Use the pain medicine you were given here as needed for breakthrough pain. Contact your primary provider for follow-up. Return to the emergency department for any new or worsening symptoms Prescriptions: New lidocaine 4 % adhesive patch,medicated 1 patch TOP Q24H PRN (Reason: pain) Qty: 1 RF: 0 No Action lisinopril 50 mg PO DAILY RF: 0 atenolol tablet 50 mg PO BID RF: 0 metformin tablet 500 mg PO BID RF: 0
[2019-11-27] MEDS: HYDROCODONE/ACET 5/325 PREPACK 1 BOTTLE MISC (21:59)
[2019-11-27 22:01] VITALS: BP 177/84; PULSE 84; RESP 18; O2SAT 98
[2019-11-27 22:04] VITALS: TEMP 36.4
== END 2019-11-27 22:04 | disposition home or self-care (01) ==
PROVIDERS: Emergency Provider Emergency Medicine
DX: R07.89 Other chest pain (principal); R07.81 Pleurodynia; S80.212A Abrasion, left knee, initial encounter; S50.312A Abrasion of left elbow, initial encounter; W19.XXXA Unspecified fall, initial encounter
CPT/HCPCS: 71101; 99283

== ENCOUNTER 2020-11-04 09:30 | Emergency (ER) | payer OTHER, SELFPAY ==
[2017-12-21 12:09] VITALS: BMI 34.3
[2020-11-04 10:36] VITALS: BP 160/72; PULSE 92; RESP 20; TEMP 37.1; O2SAT 92; BMI 39.4
[2020-11-04] MEDS: PROPARACAINE 0.5% OPHTH SOL 1 DROPS EYE-RIGHT (11:19)
--- NOTE | 2020-11-04 11:19 | ED.EYEPROB ---
HPI - Eye Problem General Chief complaint: Eye Problems Stated complaint: Cat scratch on right eyeball. Swollen/painful Time Seen by Provider: 11/04/20 10:54 Source: patient Mode of arrival: Ambulatory Limitations: no limitations History of Present Illness HPI Narrative: This is a 50-year-old female comes to the emergency department with complaint of scratch on her right eyeball. Patient states is a [id number] kitten who belongs to her daughter who is fully immunized. Patient states her tetanus is post be updated next week. She states she has hypertension but denies other medical issues. She denies any medication allergies. Patient did have PRK on her eyes in the past, [facility]. Related Data Home Medications Medication Instructions Recorded Confirmed atenolol 50 mg PO BID 12/12/17 12/21/17 lisinopril 50 mg PO DAILY 12/12/17 12/21/17 metformin 500 mg PO BID 12/12/17 12/21/17 Previous Rx's Medication Instructions Recorded lidocaine 1 patch TOP Q24H PRN #1 each 11/27/19 Allergies Allergy/AdvReac Type Severity Reaction Status Date / Time adhesive AdvReac Mild Hives Verified 11/27/19 20:39 Review of Systems Review of Systems ROS Unobtainable: All systems reviewed & are unremarkable except as noted in HPI and below Patient History Medical History Hypertension Ovarian cyst Pre-diabetes Sinus tachycardia Surgical History History of cholecystectomy Social History household members: spouse Smoking Status: Former smoker alcohol intake: never substance use type: does not use Smoking Status: Former smoker alcohol intake frequency: holidays/special occasions only Alcohol type: beer and wine Substance Use Type: does not use Exam Narrative Exam Narrative: GENERAL: Alert and oriented x three, female in mild distress. HEENT: Head normocephalic, atraumatic, EOMI, pupils reactive, face symmetric, moist mucous membranes NECK: Supple, full range of motion SKIN: Warm, dry, no petechiae, no rashes or lesions. Visual acuity: See nurse's list General: Right 20/30 and left 20/20. Eyelids: normal inspection, eyelids everted for exam on on right lower, patient does have a small laceration of her lower lip but does not involve the edge and is not through and through. This appears to be 0.25 cm in length midline.. Conjunctiva/Sclera: normal inspection Corneas: normal inspection, examined with fluroscein on right, patient has a horizontal laceration about 0.5 cm at the 6 to 7 o'clock position does not appear to have any globe trauma. EOM: intact, no palsy/entrapment Pupils: PERRL, normal accomadation, pupil normal Anterior Chambers: normal inspection, no hypema Posterior: normal fundoscopic on right Initial Vital Signs Initial Vital Signs: Vital Signs Temperature 98.7 F 11/04/20 10:36 Pulse Rate 92 H 11/04/20 10:36 Respiratory Rate 20 11/04/20 10:36 Blood Pressure 160/72 H 11/04/20 10:36 Pulse Oximetry 92 11/04/20 10:36 Course Orders Ordered: Discontinued Medications Diphtheria/Tetanus/Acell Pertussis (Tet,Diph,Pertuss(Acell),Vac/Pf 0.5 Ml Syringe) 0.5 ml IM .ONCE ONE Stop: 11/04/20 11:34 Last Admin: 11/04/20 12:03 Dose: 0.5 ml Documented by: OMAR Erythromycin (Erythromycin Ophth 1 Gm Oint) 1 applic EYE-RIGHT NOW ONE Stop: 11/04/20 11:34 Last Admin: 11/04/20 12:04 Dose: 1 applic Documented by: OMAR Fluorescein Sodium (Fluorescein 1 Mg Strip) 1 mg EYE-RIGHT NOW ONE Stop: 11/04/20 11:12 Last Admin: 11/04/20 11:20 Dose: 1 mg Documented by: OMAR Ofloxacin (Ofloxacin 0.3% Ophth 5 Ml) 1 drops EYE-RIGHT NOW ONE Stop: 11/04/20 11:32 Last Admin: 11/04/20 12:06 Dose: 1 drop Documented by: OMAR Proparacaine HCl (Proparacaine 0.5% Ophth Alisha) 1 drops EYE-RIGHT NOW ONE Stop: 11/04/20 11:12 Last Admin: 11/04/20 11:19 Dose: 1 drops Documented by: OMAR Vital Signs Vital signs: Vital Signs - 8 hr 11/04/20 10:36 Temperature 98.7 F Pulse Rate 92 H Respiratory Rate 20 Blood Pressure 160/72 H Pulse Oximetry 92 MDM - Eye Problem MDM Narrative Medical decision making narrative: 50-year-old female with a cat scratch to the right eye, patient was started on antibiotic drops, also asked to follow-up in the next 24 hours with Ophthalmology she is high risk for infection and does have a very small laceration on the inner lower lid but does not go through to the edge nor is it through and through. It is quite small so was not repaired or referred for emergent repair with ophthalmology. Plan for a follow-up next day with Ophthalmology here locally for recheck. Discharge Plan Departure Patient Disposition: Home Clinical Impression: Eyelid laceration, Abrasion, corneal, Cat scratch Instructions: DI for Corneal Abrasion Activity Restrictions/Additional Instructions: Follow up with Ophthalmology, call 1st thing after 9:00 a.m. tomorrow for an appointment in the next 24 hours. Let them know that you were seen in the emergency department and you have a corneal abrasion as well as a small laceration in the inner eyelid. Use antibiotic eye drops, 2 drops to the affected eye 4 times daily while awake. You may use Tylenol up to a 1000 mg every 8 hours and or ibuprofen up to 800 mg every 8 hours as needed for pain. Cool compresses may be helpful as well. Please return for fevers, increasing pain, sudden vision changes, purulence discharge, rapidly worsening symptoms or other new or concerning symptoms. Prescriptions: No Action lisinopril 50 mg PO DAILY RF: 0 atenolol tablet 50 mg PO BID RF: 0 metformin tablet 500 mg PO BID RF: 0 lidocaine 4 % adhesive patch,medicated 1 patch TOP Q24H PRN (Reason: pain) Qty: 1 RF: 0 Referrals: Leo Clemente MD [Physician] -
[2020-11-04] MEDS: FLUORESCEIN 1 MG STRIP EYE-RIGHT (11:20)
[2020-11-04] MEDS: TET,DIPH,PERTUSS(ACELL),VAC/PF 0.5 ML SYRINGE IM (12:03)
[2020-11-04] MEDS: ERYTHROMYCIN OPHTH 1 GM OINT 1 APPLIC EYE-RIGHT (12:04)
[2020-11-04] MEDS: OFLOXACIN 0.3% OPHTH 5 ML 1 DROPS EYE-RIGHT (12:06)
[2020-11-04 12:25] VITALS: BP 158/73; PULSE 78; TEMP 36.4; O2SAT 99
== END 2020-11-04 12:29 | disposition home or self-care (01) ==
PROVIDERS: Emergency Provider Emergency Medicine
DX: S01.111A Laceration without foreign body of right eyelid and periocular area, initial encounter (principal); S05.01XA Injury of conjunctiva and corneal abrasion without foreign body, right eye, initial encounter; W55.03XA Scratched by cat, initial encounter; Z23 Encounter for immunization
CPT/HCPCS: 90471; 99283; 90715

== ENCOUNTER 2021-10-05 09:17 | Emergency (ER) | payer OTHER, SELFPAY ==
[2017-12-21 12:09] VITALS: BMI 34.3
--- NOTE | 2021-10-05 09:54 | DI.RAD.S_ITS ---
PROCEDURE: XR TIBIA FUBULA RT 2V INDICATIONS: injury TECHNIQUE: 2 views of the tibia and fibula were acquired. COMPARISON: None. FINDINGS: Bones: No fractures or dislocations. No suspicious bony lesions. Soft tissues: No suspicious soft tissue calcifications or masses. IMPRESSION: Unremarkable tibia and fibula radiographs Approved by: Kem Weller M.D. on 10/05/2021 at 10:11
[2021-10-05 09:57] VITALS: BP 154/87; PULSE 92; RESP 18; TEMP 36.1; O2SAT 99; BMI 35.9
--- NOTE | 2021-10-05 13:50 | ED.LOWEXIN ---
HPI - Extremity Injury (Lower) <Azra Sotelo PA-C - Last Filed: 10/05/21 15:08> General Chief Complaint: Extremity Injury, Lower Stated Complaint: right leg pain, tripped by dog, heard snap Time Seen by Provider: 10/05/21 13:32 Source: patient Mode of arrival: Family Vehicle History of Present Illness HPI Narrative: Patient is a 51-year-old year old female presenting with right leg and ankle pain for 1 day. She tripped on her dog at 8:30 p.m last night and states she heard a crack. She has been been having increasing pain and pressure since injury which prompted her to come to the ER. She says the pain is stable while sitting but is a 7/10 any time she tries to bear weight. She has not taken any medications for pain management. She denies any prior injuries to this extremity. Related Data Home Medications Medication Instructions Recorded Confirmed atenolol 50 mg PO BID 12/12/17 12/21/17 lisinopril 50 mg PO DAILY 12/12/17 12/21/17 metformin 500 mg PO BID 12/12/17 12/21/17 Previous Rx's Medication Instructions Recorded lidocaine 4 % topical patch 1 patch TOP Q24H PRN #1 each 11/27/19 Allergies Allergy/AdvReac Type Severity Reaction Status Date / Time adhesive AdvReac Mild Hives Verified 10/05/21 10:02 Review of Systems <Azra Sotelo PA-C - Last Filed: 10/05/21 15:08> Review of Systems ROS Unobtainable: All systems reviewed & are unremarkable except as noted in HPI and below Constitutional Constitutional: Denies fatigue, Denies fever(s), Denies frequent falls and Denies weakness Eyes Eyes: Denies change in vision and Denies irritation ENT Ears, Nose, Mouth, and Throat: Denies dizziness, Denies neck pain and Denies sore throat Cardiovascular Cardiovascular: Denies chest pain, Denies lightheadedness and Denies dyspnea Respiratory Respiratory: Denies cough and Denies dyspnea Gastrointestinal Gastrointestinal: Denies abdominal pain, Denies diarrhea, Denies nausea and Denies vomiting Genitourinary Genitourinary: Denies dysuria and Denies flank pain Musculoskeletal Musculoskeletal: Denies back pain, Reports arthralgias, Reports joint swelling, Reports limited range of motion, Denies muscle weakness, Denies neck pain, Denies numbness and Denies tingling Integumentary/Breasts Skin/Breast: Denies erythema, Denies rash and Denies wounds Neurologic Neurologic: Denies dizziness, Denies frequent falls, Denies numbness, Denies tingling and Denies weakness Psychiatric Psychiatric: Reports system reviewed and no additional complaints, except as documented Endocrine Endocrine: Reports system reviewed and no additional complaints, except as documented, Denies fatigue and Denies flushing Hematologic/Lymphatic Hematologic/Lymphatic: Reports system reviewed and no additional complaints, except as documented Allergic/Immunologic Allergic/Immunologic: Reports system reviewed and no additional complaints, except as documented Patient History <Azra Sotelo PA-C - Last Filed: 10/05/21 15:08> Medical History Hypertension Ovarian cyst Pre-diabetes Sinus tachycardia Surgical History History of cholecystectomy Social History household members: spouse Smoking Status: Former smoker alcohol intake: never substance use type: does not use Smoking Status: Former smoker alcohol intake frequency: holidays/special occasions only Alcohol type: beer and wine Substance Use Type: does not use Exam <Azra Sotelo PA-C - Last Filed: 10/05/21 15:08> Narrative Exam Narrative: GENERAL: [] year old patient appears stated age. Well-developed patient, in mild distress. HEAD: Atraumatic. Normocephalic. EYES: Pupils equal round and reactive. Extraocular motions intact. No scleral icterus. No injection or drainage. ENT: Nose without bleeding, purulent drainage. Throat without erythema, tonsillar hypertrophy or exudate. Airway patent. NECK: Trachea midline. Non tender CARDIOVASCULAR: Regular rate and rhythm without murmurs, gallops, or rubs. RESPIRATORY: Clear to auscultation. Breath sounds equal bilaterally. No wheezes, rales, or rhonchi. GASTROINTESTINAL: Abdomen soft, non-tender, nondistended. EXTREMITIES: Right calf laterally tender to palpation, no bruising or swelling noted. Right ankle shows mild bruising and swelling around lateral malleolus. Able to dorsiflex and extend with pain elicited. BACK: Nontender without deformity or crepitance. No flank tenderness. NEURO: AOx3. SKIN: No rash or erythema of visible areas Initial Vital Signs Initial Vital Signs: Vital Signs Temperature 96.9 F L 10/05/21 09:57 Pulse Rate 92 H 10/05/21 09:57 Respiratory Rate 18 10/05/21 09:57 Blood Pressure 154/87 H 10/05/21 09:57 Pulse Oximetry 99 10/05/21 09:57 <DO Robert Velez Last Filed: 10/06/21 08:59> Initial Vital Signs Initial Vital Signs: Vital Signs Temperature 96.9 F L 10/05/21 09:57 Pulse Rate 92 H 10/05/21 09:57 Respiratory Rate 18 10/05/21 09:57 Blood Pressure 154/87 H 10/05/21 09:57 Pulse Oximetry 99 10/05/21 09:57 Procedures <BARBIE Palomo Last Filed: 10/05/21 15:08> Orthopedic Splinting/Casting Injury #1: Lower Extremity Injury Location: ankle Lower Extremity Immobilizer: Jorden wrap Other Orthopedic Equipment: crutches Post splinting neuro exam: intact Post splinting vascular exam: intact Course <BARBIE Palomo Last Filed: 10/05/21 15:08> Orders Ordered: Discontinued Medications Ketorolac Tromethamine (Ketorolac 30 Mg/Ml Vial) 15 mg IM NOW ONE Stop: 10/05/21 13:51 Vital Signs Vital signs: Vital Signs - 8 hr 10/05/21 09:57 Temperature 96.9 F L Pulse Rate 92 H Respiratory Rate 18 Blood Pressure 154/87 H Pulse Oximetry 99 <DO Robert Velez Last Filed: 10/06/21 08:59> Orders Ordered: Discontinued Medications Ketorolac Tromethamine (Ketorolac 30 Mg/Ml Vial) 15 mg IM NOW ONE Stop: 10/05/21 13:51 Vital Signs Vital signs: Vital Signs - 8 hr 10/05/21 09:57 Temperature 96.9 F L Pulse Rate 92 H Respiratory Rate 18 Blood Pressure 154/87 H Pulse Oximetry 99 MDM - Extremity Injury (Lower) <BARBIE Palomo Last Filed: 10/05/21 15:08> Imaging Data Extremity x-ray #1: Radiologist's Impression: [address] [address] XRay Report Signed Patient: Liyah Momin MR#: [id number] : 1970 Acct:[id number] Age/Sex: 51 / F Date of Service: 10/05/21 Loc: ED Accession Number: [id number] ?? Procedure: XR tibia fibula RT 2V Ordering Provider: Hoda Fields D.O. PROCEDURE:? XR TIBIA FUBULA RT 2V ? INDICATIONS:? injury ? TECHNIQUE:? 2 views of the tibia and fibula were acquired.? ? COMPARISON:? None. ? FINDINGS:? ? Bones:? No fractures or dislocations.? No suspicious bony lesions.? ? Soft tissues:? No suspicious soft tissue calcifications or masses.? ? IMPRESSION:? Unremarkable tibia and fibula radiographs ? ? ? Approved by: Kem Weller M.D. on 10/05/2021 at 10:11? [facility] Narrative Medical decision making narrative: Patient is a 51-year-old year old female presenting with right leg and ankle pain for 1 day. Tibia fibula x-ray was negative for fracture. Based on my physical exam findings, patient is likely suffering from an ankle sprain. She was offered Toradol which she declined as she did not want to wait in the ER any longer. She was given an Jorden wrap and crutches and instructed to take ibuprofen as needed for pain and inflammation. She is instructed to rest, elevate, and ice ankle as needed. Discussed that she will need to return to the ER with any concerning symptoms such as unusual swelling, redness, pain, heat, as that may indicate a blood clot. Findings and discharge diagnosis discussed with patient/family followed by verbalization of understanding Return precautions discussed with patient/family whom verbalize understanding. Discharge Plan Departure Patient Disposition: Home Clinical Impression: Ankle sprain and strain, Injury of Lower Extremity Activity Restrictions/Additional Instructions: *You have been diagnosed with a muscle strain and ankle sprain. You can take ibuprofen as needed with food for pain and inflammation control. You should also rest, ice, and elevate your right leg as needed. You should limit bearing weight and refrain from exercise until pain and inflammation subsides. This condition can take up to 2-4 weeks before full resolution. Please return to the ER with any symptoms such as severe swelling, pain, or redness of your right leg or any shortness of breath. *What to do: *Please continue to take your regular medications as directed. [ ] New medication prescriptions sent to your pharmacy: [ ] [ ] New medication written as a paper prescription [X] No new medications given *Please follow up with your primary care provider in 2-3 days, call for an appointment. Let them know you were seen in the Emergency Department and that we ask that you be seen in follow up. We will electronically transmit a record of today's note if your PCP is in our system *If you do not have a primary care provider please contact the [facility] Call Center at [phone] and they can help get you set up with a doctor in the community. *Return to Emergency Department if you should have any new, worsening or concerning symptoms, such as [fever greater than 101 F, shaking chills, worsening pain, persistent vomiting or other bothersome symptoms] Prescriptions: No Action lisinopril 50 mg PO DAILY 0RF atenolol tablet 50 mg PO BID 0RF metformin tablet 500 mg PO BID 0RF lidocaine 4 % adhesive patch,medicated 1 patch TOP Q24H PRN (Reason: pain) Qty: 1 0RF Rx Instructions: may leave on for up to 12 hrs Referrals: Kevin Mir ARNP [Primary Care Provider] - <Hoda Fields DO - Last Filed: 10/06/21 08:59> Cosign ED Attending Louisaature Attestation: I was immediately available in the department for consultation. Documentation has been reviewed. I agree with assessment and plan.
== END 2021-10-05 14:25 | disposition home or self-care (01) ==
PROVIDERS: Emergency Provider Physician Assistant; PCP Nurse Practitioner Family
DX: S93.401A Sprain of unspecified ligament of right ankle, initial encounter (principal); S96.911A Strain of unspecified muscle and tendon at ankle and foot level, right foot, initial encounter; W01.0XXA Fall on same level from slipping, tripping and stumbling without subsequent striking against object, initial encounter
CPT/HCPCS: 73590; 99281; 99283

== ENCOUNTER → 2022-06-11 08:51 | Outpatient (CLI) | payer OTHER, SELFPAY ==
[2017-12-21 12:09] VITALS: BMI 34.3
--- NOTE | 2022-06-11 | DI.US.S_ITS ---
PROCEDURE: US PELVIC COMPLETE INDICATIONS: HISTORY OF OVARIAN CYST. FAMILY HISTORY OF OVARIAN CANCER. TECHNIQUE: Real-time scanning was performed of the pelvic organs, with image documentation. Additional endovaginal scanning was necessary due to incomplete visualization of the adnexal and endometrial structures by transabdominal scanning. COMPARISON: [facility], CT, CT ABDOMEN PELVIS W CON, 12/12/2017, 19:26. FINDINGS: Uterus: Uterus is anteverted and normal in size at 5.9 x 4.4 x 2.9 cm. The myometrium is heterogeneous. The endometrium is not well seen. Small amount endocervical fluid is present and there may be a small polypoid echogenic mass within the endocervical canal measuring up to 7 mm. Ovaries: Right ovary measures 2.1 x 1.7 x 1.1 cm in the left ovary measures 4.3 x 4.3 x 4.2 cm. There are 3 cyst associated with the left ovary each containing fine low level echoes, largest measuring up to 3.8 cm. Other: No pathologic free abdominal or pelvic fluid. IMPRESSION: 1. Small amount of endocervical fluid and possible polypoid mass measuring 7 mm. Recommend short-term follow-up endovaginal ultrasound and 6 weeks and if the echogenic focus persists, recommend gynecologic consultation. 2. Three complex cysts associated with the left ovary, each containing fine low level echoes with the largest measuring up to 3.8 cm suggestive of hemorrhagic ovarian cyst or possible endometriomas. Cysts can be re-evaluated on follow-up examination. We strive to produce accurate, complete, and clear reports of imaging services. To assist us in improving patient care, this report was composed using standard report templates and voice recognition software. Therefore, it may contain abnormal punctuation, insertions and/or omissions. Occasional wrong-word or sound-alike substitutions may occur. Though we review the report and make efforts to correct it, we do recommend that the report be read carefully in proper context to recognize any text inaccuracies. Dictated by: Fady DESHPANDE Interpreted: Emmanuel Aviles MD on 06/11/2022 at 16:00 Transcribed by: TRINH on 06/11/2022 at 16:03 Approved by: Emmanuel Aviles M.D. on 06/12/2022 at 8:46
== END ==
PROVIDERS: PCP Nurse Practitioner Family; Referring Provider Nurse Practitioner Family; Visit Provider Nurse Practitioner Family
DX: N83.292 Other ovarian cyst, left side (principal)
CPT/HCPCS: 76830; 76856

== ENCOUNTER → 2022-08-13 09:36 | Outpatient (CLI) | payer OTHER, SELFPAY ==
[2017-12-21 12:09] VITALS: BMI 34.3
--- NOTE | 2022-08-13 | DI.US.S_ITS ---
PROCEDURE: US PELVIC COMPLETE INDICATIONS: Unspecified ovarian cyst TECHNIQUE: Real-time scanning was performed of the pelvic organs, with image documentation. Additional endovaginal scanning was necessary due to incomplete visualization of the adnexal and endometrial structures by transabdominal scanning. COMPARISON: [facility], US, US PELVIC COMPLETE, 06/11/2022, 9:12. FINDINGS: Uterus: Uterus is anteverted and normal in size at 8.1 x 2.6 x 3.7 cm. The myometrium is homogeneous. The endometrium measures 5 mm combined thickness. Similar prominent cervical tissue. Ovaries: Right ovary not visualized due to overlying bowel gas The left ovary measures 5.4 x 3.5 x 3.8 cm, with a calculated ovarian volume of 37 cc. Similar ovarian cystic lesions containing low-level internal echogenicity but no certain nodularity, largest measuring 3.2 cm. Other: No pathologic free abdominal or pelvic fluid. IMPRESSION: Stable appearance of the cervix, with prominent tissue present. Cervix mass not excluded. Consider gynecologic consultation. Stable left-sided ovarian cystic lesions with low-level internal echogenicity. Findings remain concerning for endometriomas. No nodular component identified. We strive to produce accurate, complete, and clear reports of imaging services. To assist us in improving patient care, this report was composed using standard report templates and voice recognition software. Therefore, it may contain abnormal punctuation, insertions and/or omissions. Occasional wrong-word or sound-alike substitutions may occur. Though we review the report and make efforts to correct it, we do recommend that the report be read carefully in proper context to recognize any text inaccuracies. Dictated by: Jose Malcolm M.D. on 08/13/2022 at 13:12 Approved by: Jose Malcolm M.D. on 08/13/2022 at 13:14
== END ==
PROVIDERS: PCP Nurse Practitioner Family; Referring Provider Nurse Practitioner Family; Visit Provider Nurse Practitioner Family
DX: N83.202 Unspecified ovarian cyst, left side (principal)
CPT/HCPCS: 76830; 76856

== ENCOUNTER 2023-09-10 00:08 | Emergency (ER) | payer OTHER, SELFPAY ==
[2017-12-21 12:09] VITALS: BMI 34.3
[2023-09-10 00:14] VITALS: BP 193/106; PULSE 127; RESP 16; TEMP 36.7; O2SAT 99; BMI 34.3
--- NOTE | 2023-09-10 00:20 | DI.RAD.S_ITS ---
PROCEDURE: XR ANKLE LT MIN 3V INDICATIONS: fall pain TECHNIQUE: 3 views of the ankle were acquired. COMPARISON: None. FINDINGS: Bones: No acute fractures or dislocations. Ankle mortise is normally aligned. No suspicious bony lesions. Plantar calcaneal and retrocalcaneal enthesophytes. Soft tissues: No tibiotalar joint effusion. Achilles tendon appears normal. Moderate lateral malleolar soft tissue swelling. IMPRESSION: No acute bony abnormality or significant effusion. Plantar calcaneal and retrocalcaneal enthesophytes. Moderate soft tissue swelling of the lateral ankle. If there is persistent clinical concern for occult fracture given adequate mechanism of injury, consider repeat imaging in 10-14 days. Dictated by: Param Curtis M.D. on 09/10/2023 at 0:44 Approved by: Param Curtis M.D. on 09/10/2023 at 0:46
--- NOTE | 2023-09-10 00:20 | DI.RAD.S_ITS ---
PROCEDURE: XR FOOT LT MIN 3V INDICATIONS: fall pain TECHNIQUE: 3 views of the foot were acquired. COMPARISON: None. FINDINGS: Bones: Nondisplaced fracture of the base of the proximal left 1st phalanx with possible intra-articular extension to the 1st metatarsophalangeal joint. No dislocations. No suspicious bony lesions. Soft tissues: No tibiotalar joint effusion. Achilles tendon appears normal. IMPRESSION: Nondisplaced fracture at the base of the left great toe proximal phalanx with possible extension to the 1st metatarsophalangeal joint. Dictated by: Param Curtis M.D. on 09/10/2023 at 0:46 Approved by: Param Curtis M.D. on 09/10/2023 at 0:48
--- NOTE | 2023-09-10 00:51 | ED_ITS ---
HPI - Fall General Chief Complaint: Fall Stated Complaint: fall left foot pain Time Seen by Provider: 09/10/23 00:09 Source: patient Mode of arrival: Ambulatory History of Present Illness HPI Narrative: 53-year-old female presents for evaluation of left foot/great toe pain. Patient states that she was going to get wood when she slipped and did a pirouette like maneuver trying to keep her balance and injured her foot in the process. Related Data Home Medications Medication Instructions Recorded Confirmed atenolol 50 mg PO BID 12/12/17 12/21/17 lisinopril 50 mg PO DAILY 12/12/17 12/21/17 metformin 500 mg PO BID pre-diabetic 12/12/17 12/21/17 Previous Rx's Medication Instructions Recorded lidocaine 4 % topical patch 1 patch topical Q24H PRN pain #1 ea 11/27/19 Allergies Allergy/AdvReac Type Severity Reaction Status Date / Time adhesive AdvReac Mild Hives Verified 06/11/22 08:54 Review of Systems Review of Systems Narrative: See HPI Patient History Medical History Pre-diabetes Ovarian cyst Sinus tachycardia Hypertension Surgical History History of cholecystectomy Social History household members: spouse Smoking Status: Former smoker alcohol intake: never substance use type: does not use Smoking Status: Former smoker alcohol intake frequency: holidays/special occasions only Alcohol type: beer and wine Substance Use Type: does not use Exam Initial Vital Signs Initial Vital Signs: Vital Signs Temperature 98.0 F 09/10/23 00:14 Pulse Rate 127 H 09/10/23 00:14 Respiratory Rate 16 09/10/23 00:14 Blood Pressure 193/106 H 09/10/23 00:14 Pulse Oximetry 99 09/10/23 00:14 Oxygen Delivery Method Room Air 09/10/23 00:14 Const: Awake, alert, no acute distress MSK: Bruising and swelling of left great toe extending to the distal foot Skin: Warm, Dry, intact, bruising of left great toe Neuro: AO x3, CN II-XII grossly intact, moves all extremities Course Orders Ordered: ED Orders 09/10/23 00:20 XR ankle LT min 3V Stat XR foot LT min 3V Stat Vital Signs Vital signs: Vital Signs - 8 hr 09/10/23 00:14 Temperature 98.0 F Pulse Rate 127 H Respiratory Rate 16 Blood Pressure 193/106 H Pulse Oximetry 99 Oxygen Delivery Method Room Air MDM - Fall Differential Diagnosis Differential diagnosis: Likely syncope, dislocation of shoulder region and fracture of wrist Imaging Data Extremity x-ray #1: Radiologist's Impression: PROCEDURE: XR FOOT LT MIN 3V INDICATIONS: fall pain TECHNIQUE: 3 views of the foot were acquired. COMPARISON: None. FINDINGS: Bones: Nondisplaced fracture of the base of the proximal left 1st phalanx with possible intra-articular extension to the 1st metatarsophalangeal joint. No dislocations. No suspicious bony lesions. Soft tissues: No tibiotalar joint effusion. Achilles tendon appears normal. IMPRESSION: Nondisplaced fracture at the base of the left great toe proximal phalanx with possible extension to the 1st metatarsophalangeal joint. Dictated by: Param Curtis M.D. on 09/10/2023 at 0:46 Approved by: Param Curtis M.D. on 09/10/2023 at 0:48 [facility] Narrative Medical decision making narrative: Toe injury. X-ray shows fracture. Patient placed in alem tape splint. Offered a hard-soled shoe however patient declined stating that her current foot where is supportive. Rice instructions advised at bedside. Discharge Plan Departure Patient Disposition: Home Clinical Impression: Fracture of toe Qualifiers: Encounter type: initial encounter Toe: great toe Fracture type: closed Phalanx: proximal Fracture alignment: nondisplaced Instructions: DI for Toe Fracture Activity Restrictions/Additional Instructions: You may alem tape your toes for support and it was important that you wear hard soled shoes. Follow up with your primary care physician and Orthopedic surgery if you continue to experience pain, however your toe should heal with conservative treatment. Prescriptions: No Action lisinopril 50 mg PO DAILY atenolol tablet 50 mg PO BID metformin tablet 500 mg PO BID lidocaine 4 % adhesive patch,medicated 1 patch TOP Q24H PRN (Reason: pain) Qty: 1 0RF Rx Instructions: may leave on for up to 12 hrs Referrals: Kevin Mir ARNP [Primary Care Provider] - Stand Alone Forms: Patient Portal/API
[2023-09-10 01:20] VITALS: BP 175/76; PULSE 104; RESP 16; O2SAT 97
== END 2023-09-10 01:22 | disposition home or self-care (01) ==
PROVIDERS: Emergency Provider Emergency Medicine; PCP Nurse Practitioner Family
DX: S92.415A Nondisplaced fracture of proximal phalanx of left great toe, initial encounter for closed fracture (principal); W01.0XXA Fall on same level from slipping, tripping and stumbling without subsequent striking against object, initial encounter
CPT/HCPCS: 73610; 73630; 99281; 99283

== ENCOUNTER → 2024-11-22 14:43 | Outpatient (CLI) | payer OTHER, SELFPAY ==
[2017-12-21 12:09] VITALS: BMI 34.3
--- NOTE | 2024-11-22 14:45 | DI.MG.S_ITS ---
MM screening mammo BI: 11/22/2024. BI-RADS: 1 CLINICAL: 54-year old female for bilateral screening mammogram. Tyrer-Cuzick lifetime risk of 6.4%. No personal or first-degree family history of breast cancer. History of ovarian cancer in one first-degree relative. PRIOR EXAMS 02/22/2019. MAMMOGRAPHY TECHNIQUE: 2D and 3D (tomosynthesis) digital mammographic views obtained, with additional images as needed for full coverage. Current study was also evaluated with a Computer Aided Detection (CAD) system. DENSITY B. There are scattered areas of fibroglandular density. MAMMOGRAPHY FINDINGS Bilateral: No suspicious mass, asymmetry, microcalcification, or other abnormality seen. IMPRESSION: * No evidence of malignancy. RECOMMENDATIONS Bilateral * Annual screening mammography. OVERALL ASSESSMENT CATEGORY BI-RADS-1: Negative. [employer] recommends annual screening mammography beginning at age 40 for women with average risk of breast cancer. PRELIMINARILY ELECTRONICALLY SIGNED: Bridget Farmer M.D. on 11/23/2024 at 12:43:58 PM PT ELECTRONICALLY SIGNED: Bridget Farmer M.D. on 11/25/2024 at 05:07:31 PM PT Interpreting Station ID: [id number]
== END ==
LOC: MAMMO 14:45
PROVIDERS: PCP Nurse Practitioner Family; Referring Provider Nurse Practitioner Family; Visit Provider Nurse Practitioner Family
DX: Z12.31 Encounter for screening mammogram for malignant neoplasm of breast (principal); Z80.41 Family history of malignant neoplasm of ovary
CPT/HCPCS: 77063; 77067